=== PATIENT | male | born 1990 | race Caucasian/White ===

== ENCOUNTER → 2021-10-14 | Outpatient (CLI) | payer OTHER ==
[~2021-10-14] MED LIST: EC NAPROSYN500 MG PO; PERCOCET 325 MG1 TA2 PO; ULTRAM 50MG TAB50 MG PO
== END ==
LOC: MHCPAIN 14:37
DX: M47.817 Spondylosis without myelopathy or radiculopathy, lumbosacral region (principal); M79.2 Neuralgia and neuritis, unspecified; M53.3 Sacrococcygeal disorders, not elsewhere classified; M54.50 Low back pain, unspecified
CPT/HCPCS: G0463

== ENCOUNTER 2024-02-04 14:35 | Emergency (ER) | payer OTHER ==
[~2024-02-04] VITALS: Ht 180.3 cm; Wt 118.2 kg
[2024-02-04 14:42] VITALS: TEMP 97.9
[2024-02-04] MEDS ORDERED: NS 100 ML IV SCH (15:47)
[2024-02-04] MEDS ORDERED: Iohexol 300 - 100 ML VIAL IV ONE (15:47)
[2024-02-04 16:40] VITALS: BP 136/93; PULSE 88
== END 2024-02-04 16:40 | disposition home or self-care (01) ==
LOC: COL.ER 14:35
DX: S20.20XA Contusion of thorax, unspecified, initial encounter (principal); V43.53XA Car driver injured in collision with pick-up truck in traffic accident, initial encounter; Y92.410 Unspecified street and highway as the place of occurrence of the external cause
CPT/HCPCS: Q9967